=== PATIENT | female | born 1950 | race Caucasian/White ===

== ENCOUNTER 2019-02-03 07:51 | Day surgery (SDC) | payer MEDICARE, OTHER, MEDICAID ==
[~2019-02-03 07:51] MED LIST: EPINEPHrine 1:10,000 1 MG/10 ML Syringe ONE; Midazolam 1 MG/ML 2 ML SDV ONE; Propofol 200 MG/20 ML SDV ONE
[2019-02-03] MEDS ORDERED: Sodium Chloride 0.9% 10 ML Syringe FLUSH PRN (08:00)
[2019-02-03] MEDS ORDERED: Lactated Ringers 1,000 ML IV SCH (08:00)
[2019-02-03] MEDS ORDERED: Midazolam 1 MG/ML 2 ML SDV IV ONE (08:56)
[2019-02-03] MEDS ORDERED: Propofol 200 MG/20 ML SDV IV ONE (08:56)
--- NOTE | 2019-02-03 09:39 | PCM.OPNOTE ---
- General Post-Op/Procedure Note Date of Surgery/Procedure: 02/03/19 Operative Procedure(s): Colonoscopy. Findings: Multiple diverticuli were seen throughout the colon more pronounced at the sigmoid colon. Otherwise negative colonoscopy. Pre Op Diagnosis: Persistent low abdominal pain, screening colonoscopy. Post-Op Diagnosis: As above. Anesthesia Technique: MAC Primary Surgeon: Alexei Hernandez Complications: None Condition: Good Free Text/Narrative:: INFORMED CONSENT: Patient is here today for elective colonoscopy. All aspects of this procedure have been discussed with the patient. All possible complications also, including possibility of perforation, infection, pain, bleeding and unknown complications. In the event of perforation patient may need to have abdominal exploration, colon resection, colostomy and even was discussed. Anesthetic complications were handled by anesthesia department. The patient understands fully well. Patient did not have any further questions for me at the end of my interview. The patient wishes for me to proceed. PREOPERATIVE DIAGNOSIS/INDICATIONS: [Screening colonoscopy lower abdominal pain.] POSTOPERATIVE DIAGNOSIS: [Multiple diverticuli present throughout the colon more pronounced at the sigmoid colon.] INSTRUMENT USED: Olympus videocolonoscope. ASA CLASSIFICATION: [2] ANESTHESIA: Continuous EKG, oximetry and intermittent blood pressure and respiratory monitoring were performed throughout the procedure. IV Versed and Fentanyl were administered. PROCEDURE PERFORMED: Colonoscopy POSITIONS OF PATIENT: Left lateral. RECTUM: Normal. SIGMOID COLON: Multiple diverticuli some of them are large. No complication.. DESCENDING COLON: Normal. SPLENIC FLEXURE: Normal. TRANSVERSE COLON: Normal. HEPATIC FLEXURE: Normal except for some diverticuli. ASCENDING COLON: Normal. CECUM: Normal. ILEOCECAL VALVE: Normal. BIOPSY: None. TOLERANCE: Excellent. COMPLICATIONS: None.
== END 2019-02-03 10:50 | disposition home or self-care (01) ==
LOC: KA.SDS 07:51
PROVIDERS: ATTEND Family Medicine
DX: R10.30 Lower abdominal pain, unspecified (principal); K57.30 Diverticulosis of large intestine without perforation or abscess without bleeding; K58.9 Irritable bowel syndrome, unspecified; F33.9 Major depressive disorder, recurrent, unspecified; Z79.899 Other long term (current) drug therapy; Z88.2 Allergy status to sulfonamides; Z88.5 Allergy status to narcotic agent
CPT/HCPCS: 00811; J2250; J2704; J7120